=== PATIENT | female | born 1985 | race Caucasian/White ===

== ENCOUNTER 2019-01-28 19:46 | Emergency (ER) | payer OTHER ==
[~2019-01-28] VITALS: Ht 157.5 cm; Wt 48.0 kg
[2019-01-28] MEDS ORDERED: ACETAMINOPHEN 325MG TABLET PO ONE (23:15)
[2019-01-28] MEDS ORDERED: BACITRACIN ZINC OINT UDPKT TOP ONE (23:15)
[2019-01-28] MEDS ORDERED: BACITRACIN 15GM TUBE TOP NR (23:30)
[2019-01-28 23:32] VITALS: BP 120/72
== END 2019-01-28 23:41 | disposition home or self-care (01) ==
LOC: ER 19:46
DX: S71.132A Puncture wound without foreign body, left thigh, initial encounter (principal); X58.XXXA Exposure to other specified factors, initial encounter; Y93.89 Activity, other specified; Y92.89 Other specified places as the place of occurrence of the external cause; Y99.8 Other external cause status
CPT/HCPCS: 99283